=== PATIENT | male | born 1965 | race Hispanic/Latino ===

== ENCOUNTER 2016-07-25 13:38 | Observation (INO) | payer OTHER ==
[~2016-07-25] VITALS: Ht 162.6 cm; Wt 81.4 kg
[2016-07-25 14:37] LABS: BASOPHILS % (AUTO) 0 % (0-2); EOSINOPHILS # (AUTO) 0.1 10^3uL; EOSINOPHILS % (AUTO) 1 % (0-4); LYMPHOCYTES # (AUTO) 2.4 X10^3; MEAN CORPUSCULAR HEMOGLOBIN 30.6 PG (26.0-34.0); MEAN CORPUSCULAR VOLUME 83 FL (80-100); MONOCYTES # (AUTO) 0.5 X10^3; MONOCYTES % (AUTO) 6 % (3-11); NEUTROPHILS # (AUTO) 6.3 X10^3; NEUTROPHILS % (AUTO) 67 % (51-67); PLATELET COUNT 281 10^3uL (150-450); WHITE BLOOD COUNT 9.35 10^3uL (4.0-11.0)
[2016-07-25 14:56] LABS: MEAN CORPUSCULAR HGB CONC 36.9 g/dL (31.0-37.0)
[2016-07-25 15:03] LABS: ALBUMIN 4.9 g/dL (3.4-5.0); ANION GAP 21.5 MEQ/L (3-15); TOTAL PROTEIN 8.7 g/dL (6.4-8.5)
--- NOTE | 2016-07-25 15:10 | NUR ---
Lab calls [facility] [address]. Reported to Dr. Anaya
[2016-07-25] MEDS ORDERED: INSULIN REGULAR 1 UNIT/0.01 ML DOSE IV ONE (15:15)
--- NOTE | 2016-07-25 16:45 | NUR ---
Dr. Anaya speaks with Dr. Moise (Hospitalist) about possibly admitting pt.
--- NOTE | 2016-07-25 16:59 | NUR ---
report given to Pamela on 3rd floor. Pt will go to room 315
--- NOTE | 2016-07-25 17:15 | NUR ---
Pt admitted to 315 at this time via w/c accompanied by Dahiana ED RN. 20g LAC SL. Pt ambulates independently from weight chair to bed with no difficulty. See admission database for assessment info.
[2016-07-25 17:28] VITALS: BP 141/103
[2016-07-25 17:31] VITALS: BP 141/103
[2016-07-25] MEDS ORDERED: DEXTROSE 50% 25 GM/50 ML SYRINGE IV PRN (17:50)
[2016-07-25] MEDS ORDERED: DEXTROSE ORAL GEL (GLUTOSE 40%) 15 GM TUBE PO PRN (17:50)
[2016-07-25] MEDS ORDERED: GLUCAGON EMERGENCY 1 MG/KIT IM PRN (17:50)
[2016-07-25] MEDS ORDERED: ONDANSETRON 2 MG/ML (Z0FRAN) 2 ML VIAL IV PRN (17:50)
[2016-07-25] MEDS ORDERED: INSULIN LISPRO 1 UNIT/0.01 ML (HUMALOG) DOSE SC ONE ×3 (17:55→23:25)
[2016-07-25] MEDS ORDERED: SODIUM CHLORIDE FLUSH 10 ML ONE ×2 (18:02→21:18)
--- NOTE | 2016-07-25 18:10 | NUR ---
IV Bolus @500ml/hr infusing into 20g IV in RAC- Humalog 10units x1 given now in Lt upper arm. Will cont to monitor blood sugars.
--- NOTE | 2016-07-25 18:18 | NUR ---
Instructed by Dr Moise to hold SSI until the AM. Will recheck blood sugar at 1999. Pt resting in bed at this time. Placed wallet in safe. Pt is NPO but we are to encourage water intake per Dr Moise's instruction. NS bolus infusing without difficulty. Pt denies needs.
[2016-07-25 18:22] LABS: HEPATITIS A ANTIBODY IGM Negative; HEPATITIS B CORE ABY IGM Negative; HEPATITIS B SURFACE ANTIGEN C Negative
[2016-07-25] MEDS ORDERED: NS 1000 ML IV BAG IV SCH (22:00)
[2016-07-25 22:15] LABS: ANION GAP 14.3 MEQ/L (3-15)
[2016-07-26 00:16] VITALS: BP 117/79
--- NOTE | 2016-07-26 04:31 | NUR ---
1999-Blood sugar is 289, receive order from Dr. Moise to give Humulin Insulin 6 units SQ x 1 dose now, start NS 125 ML/HR x2 bags, and recheck BS at 2200. 2199-BS is 278, received order from Dr. Moise to give Humulin Insulin 6 units SQ x1 dose now. 0430-Pt is resting in bed asleep, has denied pain and discomfort during this shift. IV is infusing without difficulty, no redness, swelling, or s/s of infection noted at this time. Call light is reach, will continue to monitor.
[2016-07-26] MEDS: LEVOTHYROXINE 88 MCG (LEVOTHORID) TABLET PO SCH (06:24)
[2016-07-26] MEDS: INSULIN LISPRO 1 UNIT/0.01 ML (HUMALOG) DOSE SC SCH ×5 (06:24→20:51)
[2016-07-26 06:25] LABS: BASOPHILS % (AUTO) 0 % (0-2); EOSINOPHILS # (AUTO) 0.2 10^3uL; EOSINOPHILS % (AUTO) 2 % (0-4); LYMPHOCYTES # (AUTO) 2.3 X10^3; MEAN CORPUSCULAR HEMOGLOBIN 30.6 PG (26.0-34.0); MEAN CORPUSCULAR VOLUME 83 FL (80-100); MEAN PLATELET VOLUME 10.2 FL (6.0-9.5); MONOCYTES # (AUTO) 0.5 X10^3; MONOCYTES % (AUTO) 7 % (3-11); NEUTROPHILS % (AUTO) 62 % (51-67); PLATELET COUNT 226 10^3uL (150-450); WHITE BLOOD COUNT 8.02 10^3uL (4.0-11.0)
[2016-07-26 06:49] LABS: ALBUMIN 3.3 g/dL (3.4-5.0); ANION GAP 11.9 MEQ/L (3-15); TOTAL PROTEIN 6.1 g/dL (6.4-8.5)
[2016-07-26] MEDS ORDERED: INSULIN GLARGINE 1 UNIT/0.01ML (LANTUS) DOSE SC ONE (06:55)
[2016-07-26 07:06] LABS: MEAN CORPUSCULAR HGB CONC 36.9 g/dL (31.0-37.0)
[2016-07-26 07:54] VITALS: BP 122/76
[2016-07-26] MEDS: lisINopril 20 MG (PRINIVIL) TABLET PO SCH (08:14)
--- NOTE | 2016-07-26 10:17 | NUR ---
Med Rec completed via external med hx and conversation with patient.
[2016-07-26] MEDS ORDERED: INSULIN LISPRO 1 UNIT/0.01 ML (HUMALOG) DOSE SC ONE ×2 (12:40→16:55)
--- NOTE | 2016-07-26 12:43 | NUR ---
1130 blood sugar: 382. Jose Maria notified. Instructed to give 10u Humalog once. Pt administered injection himself with instruction from this nurse. Tolerated this well.
[2016-07-26 15:21] VITALS: BP 118/69
[2016-07-26] MEDS: ACETAMINOPHEN 325 MG TAB (TYLENOL) PO PRN (17:35)
--- NOTE | 2016-07-26 17:35 | NUR ---
PRN Tylenol given at this time for c/o SCHULZ. 15u Humalog given per Dr Moise's instruction for blood sugar of 371. New orders entered. Pt denies other needs. SL intact.
[2016-07-26 17:40] VITALS: BP 118/69
[2016-07-26] MEDS: INSULIN GLARGINE 1 UNIT/0.01ML (LANTUS) DOSE SC SCH (20:52)
[2016-07-26] MEDS ORDERED: INSULIN GLARGINE 1 UNIT/0.01ML (LANTUS) DOSE SC SCH (21:00)
[2016-07-26 23:48] VITALS: BP 120/80
--- NOTE | 2016-07-27 05:23 | NUR ---
Pt has been resting in bed sleeping for the majority of this shift. Denies pain or needs during this shift, call light is in reach. Will continue to monitor.
[2016-07-27] MEDS: LEVOTHYROXINE 88 MCG (LEVOTHORID) TABLET PO SCH (06:21)
[2016-07-27 06:59] LABS: ANION GAP 11.6 MEQ/L (3-15)
[2016-07-27 07:46] VITALS: BP 109/66
--- NOTE | 2016-07-27 07:53 | NUR ---
Patient sitting up in recliner upon shift assessment. Alert and oriented X3. Reports generalized headache rated 3/10 on pain scale. Lung sounds CTAB. HR RRR. Updated on plan of care for shift including general engineering teacher consult for diabetes and managing blood sugar. Call light in reach.
[2016-07-27] MEDS: ACETAMINOPHEN 325 MG TAB (TYLENOL) PO PRN (08:34)
[2016-07-27] MEDS: lisINopril 20 MG (PRINIVIL) TABLET PO SCH (08:34)
[2016-07-27] MEDS: INSULIN LISPRO 1 UNIT/0.01 ML (HUMALOG) DOSE SC SCH ×12 (08:35→23:22)
--- NOTE | 2016-07-27 10:10 | NUR ---
NUTRITION ASSESSMENT Level 1 Patient: Lai Nelson Age/Sex: 51/M Date Screened: 07-27-16 Weight: 179#/81.4 kg Height: 64 inches Primary Diagnosis: hyperglycemia Diet Order: medium diabetic Relevant labs: glucose 242 (587 on admit), Hgb A1c 9.7, triglycerides 352, cholesterol 143, LDL 41, HDL 32 Food allergies: N Nutrition Assessment Criteria Age over 80: N Body Mass Index (BMI) under 19: N Admission Screening Indicates Risk? 6 points Moderate/High Risk Diagnosis: 3 points TPN or PPN: N NPO or clear liquid diet: N Serum Glucose <70 or >180: 3 points Hgb A1c >6.7: 3 points Total: 15 points Risk Screen: __ Patient at low nutritional risk based on available data; reevaluate in 5-7 days __ Patient at moderate nutritional risk based on available data; reevaluate in 3-5 days _X_ Patient at high nutritional risk; complete Nutrition Assessment within 48 hours of admission.
--- NOTE | 2016-07-27 10:40 | NUR ---
Dr. Winchester orders hourly accucheck and to correct with SSI. Accucheck at 1040= 414. 5 units of Humalog provided. Will continue to monitor.
--- NOTE | 2016-07-27 12:20 | NUR ---
MULTIDISCIPLINARY MTG/DR. SALEH: Pt. is doing well. His sugars this morning were 242. Will started hourly accuchecks to correct with sliding scale insulin. Pt. A1C is 9.7. A consult with the dietitian has been ordered. No discharge needs identified at this time.
--- NOTE | 2016-07-27 12:44 | NUR ---
NUTRITION ASSESSMENT Level II Patient: Lai Nelson Age/Sex: 51/m Date Assessed: 07-27-16 ASSESSMENT Pertinent History: Patient admitted with hyperglycemia and screened at high nutritional risk secondary to uncontrolled diabetes from medication noncompliance. PMHx includes hypothyroidism and HTN. I had seen patient once as an outpatient in October 2014 and taught him the basics of a diabetic diet. However, he was not completely ready to change his habits at that time and was unable to commit to doing so. He faces numerous obstacles to healthy eating including living alone and an inconsistent eating schedule (he works 12 hour shifts and goes back and forth between day and night shifts.) When I last saw him he c/o taste changes from his diabetes meds which negatively impacted the pleasure of eating and is one reason why he stopped taking them. His weight has been stable over the past 2 years. Pt. reported his health insurance wasn't covering his test strips and he has a prescription for another meter but never got it filled yet for "money reasons." Food recall showed diet high in processed foods, as pt. does not cook. He is very low in fruit and vegetable intake but was agreeable to improving the nutritional content of his diet. Meds/Nutrition: Humalog, Lantus, Synthroid Weight: 179#/81.4 kg Height: 64 inches Body Mass Index (BMI): 30.8 [place] Body Weight : 130#/59 kg % IBW: 137% GASTROINTESTINAL Appetite: good, eating 100% Diet Order: medium diabetic Unintentional loss of >10 lbs. in 3 months: N Difficult to chew/swallow: N Diabetes: Yes Relevant Labs: glucose 242 (587 on admit), Hgb A1c 9.7, triglycerides 352, cholesterol 143, LDL 41, HDL 32 Calculations for Nutritional Assessment Estimated calorie needs: 22-25 kcals/kg = 1,780-2,025 kcals Estimated protein needs: 1.0-1.1 g/kg ABW = 64-71 g./day DIAGNOSIS 1. Nutrition Diagnosis: Altered nutrition-related lab values (glucose) related to endocrine dysfunction and inappropriate food choices as evidenced by Hgb A1c 9.7 with uncontrolled diabetes and failure to apply previously recommended nutrition interventions. NUTRITIONAL INTERVENTION Goal: Patient will receive adequate nutrition to meet his needs. Plan: Pt. was agreeable to trying steamable frozen vegetables that he can microwave; we discussed that if he eats the vegetables first he'll have less room in his stomach for the burrito/pizza/or breaded chicken in 3 tortillas that he is currently eating. He is also drinking 10 small cans regular pop/day, though he likes diet Coke also. He buys white bread out of habit, but is willing to switch to whole wheat. Recommended he stop drinking orange juice unless his sugar is low, and to keep healthy snacks in the house. Also provided 0-calorie ideas for him to drink. Pt. said if he needs energy at work he takes a 5-hour Energy drink; I discouraged this and suggested a CHO/protein combination for more sustainable energy, such as apple/PB, string cheese and small box raisins, mixed nuts, etc. I asked pharmacy if they could follow up with insurance coverage for his test strips. Pt. was encouraged to call me if he has questions or desires a f/u appt. as outpatient. MONITORING & EVALUATION _X_ Monitor patients menu selections _X_ Monitor patients food intake per nursing notes __ Monitor NPO/clear liquid days _X_ Monitor lab values __ Monitor I&O __ Other
--- NOTE | 2016-07-27 14:00 | NUR ---
Blood sugar at this time = 362. Patient self administers 5 units into left lower abdomen. Will continue to monitor.
[2016-07-27 16:04] VITALS: BP 114/72
[2016-07-27] MEDS: METFORMIN 850 MG PO SCH (18:03)
--- NOTE | 2016-07-27 18:39 | NUR ---
Hourly accuchecks performed throughout afternoon per order. Requires SSI each time. Sugars range from 362-242. Patient self administering insulin without difficulty. Denies pain or distress this afternoon. Call light in reach.
[2016-07-27] MEDS: INSULIN GLARGINE 1 UNIT/0.01ML (LANTUS) DOSE SC SCH (20:45)
[2016-07-28 00:17] VITALS: BP 128/85
[2016-07-28] MEDS: INSULIN LISPRO 1 UNIT/0.01 ML (HUMALOG) DOSE SC SCH ×9 (00:17→20:55)
[2016-07-28] MEDS: LEVOTHYROXINE 88 MCG (LEVOTHORID) TABLET PO SCH (06:19)
[2016-07-28 07:19] VITALS: BP 95/61
[2016-07-28] MEDS: METFORMIN 850 MG PO SCH ×2 (09:37→18:17)
[2016-07-28] MEDS: lisINopril 20 MG (PRINIVIL) TABLET PO SCH (09:37)
--- NOTE | 2016-07-28 11:53 | NUR ---
Blood sugar 333 at this time. Ranulfo notified. Instructed to given 15u Humalog now and recheck blood sugar 2 hours after meal.
[2016-07-28] MEDS ORDERED: INSULIN LISPRO 1 UNIT/0.01 ML (HUMALOG) DOSE SC ONE (11:55)
--- NOTE | 2016-07-28 15:05 | NUR ---
Diabetic monitoring education: Ashanti Jean-Baptiste, PharmD Candidate 2017 spoke with [employer] on 07-27-16 to try and determine how he needed to obtain a glucometer. The company gave me a phone number to call in order to get a free glucometer. Patient and I called the number today and were informed a script would need to be sent in for glucometer, glucometer test strips and lancets. The glucometer and lancing device were free, but the testing supplies would have been about $155 dollars for 3 months. After further investigation, buying a glucometer, lancing device, test strips and lancets over the counter at [facility] was cheaper for the patient. Both options were discussed with patient and he decided to buy diabetic testing supplies at [facility].
[2016-07-28 16:01] VITALS: BP 100/66
--- NOTE | 2016-07-28 19:25 | NUR ---
Pt is sitting up in bed watching tv and visiting with family. Alert and oriented x 4, Resp are even and nonlabored, LCTAB, BS are active x 4 quadrants, SL is patent, no redness, swelling, or s/s of infection noted at this time. Pt denies pain or discomfort. Call light is in reach, will continue to monitor.
[2016-07-28] MEDS ORDERED: INSULIN GLARGINE 1 UNIT/0.01ML (LANTUS) DOSE SC SCH (21:00)
[2016-07-28] MEDS ORDERED: ATORVASTATIN 10 MG (LIPITOR) TABLET PO SCH (21:00)
[2016-07-29 00:18] VITALS: BP 132/77
[2016-07-29] MEDS: LEVOTHYROXINE 88 MCG (LEVOTHORID) TABLET PO SCH (06:40)
[2016-07-29] MEDS: INSULIN LISPRO 1 UNIT/0.01 ML (HUMALOG) DOSE SC SCH ×4 (06:47→12:38)
--- NOTE | 2016-07-29 07:47 | NUR ---
Patient sitting up in bed upon shift assessment. Alert and oriented x3. Denies pain, nausea, or other distress. 0600 accucheck = 100. Updated on plan of care for shift. Call light in reach.
[2016-07-29 08:02] VITALS: BP 108/70
[2016-07-29] MEDS: METFORMIN 850 MG PO SCH (08:04)
[2016-07-29] MEDS: lisINopril 20 MG (PRINIVIL) TABLET PO SCH (08:04)
[2016-07-29] MEDS ORDERED: NS FLUSH 10 ML PRN IV (08:40)
[2016-07-29] MEDS ORDERED: NS FLUSH 3 ML PRN IV (08:40)
[2016-07-29] MEDS ORDERED: NS FLUSH 3 ML DAILY IV SCH (09:00)
--- NOTE | 2016-07-29 14:35 | NUR ---
Reviewed discharge medications with patient. Reviewed blood glucose testing technique. Provided patient handout information for new medications. No additional questions or concerns. Patient verbalized understanding of medications. Conducted by Alejandra LarsonD Candidate 2017.
--- NOTE | 2016-07-29 14:41 | NUR ---
Discharge order received. IV discontinued with catheter intact. No redness or swelling noted at insertion site. Instructions provided with verbal and written understanding expressed. Dismissed ambulatory to private car accompanied by COMPOUNDER. Possessions from safe returned to patient and all accounted for. No further needs.
== END 2016-07-29 14:40 | disposition home or self-care (01) ==
LOC: EDUNIT# 13:38 → ED 13:42 → MED/SURG 16:56
PROVIDERS: ADMIT Family Medicine; ATTEND Family Medicine
DX: E11.65 Type 2 diabetes mellitus with hyperglycemia (principal); E78.5 Hyperlipidemia, unspecified; I10 Essential (primary) hypertension; E78.1 Pure hyperglyceridemia; Z79.84 Long term (current) use of oral hypoglycemic drugs; Z91.14 Patient's other noncompliance with medication regimen
CPT/HCPCS: 36415; 80048; 80053; 80061; 80074; 83036; 84443; 85025; 86140; 96360; 96361; 99284; J1815; J7030; 99218; 99283

== ENCOUNTER → 2016-10-21 | Outpatient (REF) | payer OTHER ==
[~2016-10-21] MED LIST: AC325T PO; AMOX500C5 PO; BLOO1EAC87 MC; ENAL20TA PO; GLIP5TAB13 PO; GLYB1TAB18 PO; LANC-956 MC; LEVO88TA4 PO; LOVA40TA2 PO; LSNP20T PO; METF850T PO; TESTSTRIPS MC; TRAM-25 PO; TRAM100C3 PO
[2016-10-21 12:17] LABS: ALBUMIN 4.4 g/dL (3.4-5.0); ANION GAP 17.5 MEQ/L (3-15); CALCULATED IONIZED CALCIUM 4.3 mg/dL (3.8-4.6); TOTAL PROTEIN 7.2 g/dL (6.4-8.5)
== END ==
LOC: LAB 11:12
PROVIDERS: ATTEND Physician Assistant Surgical
DX: E11.9 Type 2 diabetes mellitus without complications (principal)
CPT/HCPCS: 80053; 83036